=== PATIENT | male | born 1955 | race African-American/Black ===

== ENCOUNTER → 2018-11-02 | Outpatient (CLI) | payer OTHER ==
[~2018-11-02] MED LIST: ALLOPURINOL 30300 M2 PO; CALCIUM 600 +1 EAC1 PO; CENTRUM SILVER1 EAC2 PO; COLCHICINE0.6 MG PO; COREG6.25 MG PO; NAPROSYN500 MG PO; PERCOCET PO; PRILOSEC40 MG PO; PRINIVIL20 MG PO
== END ==
LOC: CAT 15:17
DX: Z13.6 Encounter for screening for cardiovascular disorders (principal); E78.00 Pure hypercholesterolemia, unspecified; Z82.49 Family history of ischemic heart disease and other diseases of the circulatory system

== ENCOUNTER → 2020-07-31 | Outpatient (CLI) | payer BC | LOC: SJCVCIMAG 10:30 | PROVIDERS: ATTEND Internal Medicine | DX: R00.0 Tachycardia, unspecified (principal); I11.9 Hypertensive heart disease without heart failure; I25.10 Atherosclerotic heart disease of native coronary artery without angina pectoris; R06.00 Dyspnea, unspecified ==